=== PATIENT | male | born 1955 | race Caucasian/White ===

== ENCOUNTER → 2018-04-11 | Outpatient (CLI) | payer OTHER ==
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
== END | disposition home or self-care (01) ==
LOC: HKI 14:54
PROVIDERS: ATTEND Orthopaedic Surgery Adult Reconstructive Orthopaedic Surgery
DX: M17.11 Unilateral primary osteoarthritis, right knee (principal)
CPT/HCPCS: G0463

== ENCOUNTER → 2018-04-22 | Outpatient (CLI) | payer OTHER ==
--- NOTE | 2018-04-22 17:37 | CONS ---
Consult Date/Type/Reason Admit Date/Time Initial Consult Date Date/Time of Note DATE: 04/22/18 TIME: 17:32 Subjective This is a 60-year-old male who returns clinic today for right steroid knee injection. States his symptoms are unchanged. His pain is very severe but he is not ready for surgery at this time. Objective Exam General: Awake, alert, in no acute distress, pleasant and cooperative Heart: regular rhythm Lungs: breathing comfortably, no tachypnea or dyspnea MUSCULOSKELETAL: Right lower extremity: Skin intact Sensation intact to light touch in a sural, saphenous, deep peroneal, superficial peroneal, medial and lateral plantar nerve distribution. Motor is intact, patient able to dorsiflex and plantarflex ankle and extend and flex great toe. Dorsalis Pedis pulse +2, Brisk capillary refill. Compartments are soft. Calves non-tender to palpation bilaterally. Results/Medications Imaging The patient received a standard set of films today that were personally r eviewed. Imaging included a standing bilateral knee AP, PA flexion, merchant views and a dedicated lateral of the affected knee: There is varus alignment of the knee. There is complete loss of joint space medial compartment(s) significant loss in the lateral and patellofemoral. There is abundant osteophyte formation. There is subchondral sclerosis. There are subchondral cysts. Degenerative changes are most severe in the medial compartment(s) Assessment/Plan Hospital Course (Demo Recall) 60-year-old male with end-stage osteoarthritis of the right knee. Presents today for planned right knee steroid injection. If this injection provides relief for at least 3 months repeat injection would be reasonable. If it fails to provide relief surgery would be the next option. Plan: Right knee steroid injection Follow-up 8 weeks Assessment/Plan (Daily) Right knee steroid injection procedure: Risks and benefits of steroid injection reviewed with patient. The risks include infection, failure, pain, swelling, nerve/tendon/ligament damage. The patient verbalized understanding and verbal consent was obtained prior to procedure. The right knee was prepped in a sterile fashion with alcohol and betadine the site of injection was confirmed. Anterior medial approach was used. The skin and capsule was anesthetized with 3mL 1% lidocaine. The right knee was injected with 2mL 1% lidocaine, 2mL 0.25% bupivacaine, 40mg Depo-Medrol. Injection flowed freely. Good hemostasis was achieved and no complications noted. The patient tolerated the procedure well. Limit activity and ice for 24-48 hours JOHNYN PITTMAN MD Apr 22, 2018 17:36
--- NOTE | 2018-04-23 16:42 | RADRPT ---
PROCEDURE: XR Knees. CLINICAL INDICATION: Preoperative. Bilateral knee pain. TECHNIQUE: Total of eight views. Weightbearing frontal, oblique, and lateral views of the both kne es. Patellar views of both knees. COMPARISON: No prior study is available for comparison. FINDINGS: On the right side, there are degenerative changes with osteophytes arising from all 3 joint compartme nt margins. There is medial joint compartment narrowing, subarticular sclerosis, and deformity. There is a right knee joint effusion. On the left side, there are degenerative changes with osteophytes arising from all 3 joint compartmen t margins. There is mild medial joint compartment narrowing. There is no deformity. There is no left knee joint effusion. There is no lytic or blastic lesion on either side. There is no radiopaque foreign body. IMPRESSION: 1. Severe degenerative changes of the right knee. 2. Moderate degenerative changes of the left knee. 3. Right knee joint effusion. 4. Otherwise unremarkable study. RPTAT: QQ .Poncho Sher MD, MD Date Time Electronically viewed and signed by .Poncho Sher MD, on 04/23/2018 16:42 .R/
--- NOTE | 2018-04-23 16:44 | RADRPT ---
PROCEDURE: Limited x-ray of both lower extremities. CLINICAL INDICATION: Bilateral leg pain. TECHNIQUE: Single frontal view of both lower extremities was obtained from the hips to the ankles. COMPARISON: None. FINDINGS: The right femur measures 57 cm. The left femur measures 58 cm. The right tibia measures 44 cm. The left tibia measures 44.5 cm. There is an old healed fracture of the midshaft of the right femur. There are severe degenerative changes of the right knee joint and moderate degenerative changes of th e left knee joint. IMPRESSION: 1. Leg length as described above. 2. Old healed fracture of the midshaft of the right femur. 3. Severe degenerative changes of the right knee joint and moderate degenerative changes of the left knee joint. RPTAT: QQ .Poncho Sher MD, Date Time Electronically viewed and signed by .Poncho Sher MD, on 04/23/2018 16:44 .R/
== END | disposition home or self-care (01) ==
LOC: HKI 14:21
PROVIDERS: ATTEND Orthopaedic Surgery Adult Reconstructive Orthopaedic Surgery
DX: M17.11 Unilateral primary osteoarthritis, right knee (principal)
CPT/HCPCS: 20610; 73564; 77073; G0463

== ENCOUNTER → 2018-06-17 | Outpatient (CLI) | payer OTHER ==
--- NOTE | 2018-06-17 13:13 | CONS ---
Consult Date/Type/Reason Admit Date/Time Initial Consult Date Date/Time of Note DATE: 06/17/18 TIME: 13:10 Subjective 62-year-old male follows up today for right knee Orthovisc injection. He previously had a steroid injection by myself back in March. This only provided 1 week of relief. He is not ready for surgery from a logistical standpoint. He is trying to take care of his mother at this time. Therefore a hyaluronic acid injection was offered to try alternative conservative management. Denies any changes in symptoms except for continued pain and difficulty ambulating. He continues to wear a knee sleeve/brace. Objective Vitals Weight: 207 pounds Height: 5 foot 6 inches Temperature: 90.4 Heart Rate: 79 Blood Pressure: 128/76 Respiratory Rate: 12 Exam General: Awake, alert, in no acute distress, pleasant and cooperative Heart: regular rhythm Lungs: breathing comfortably, no tachypnea or dyspnea MUSCULOSKELETAL: Right lower extremity: Skin intact. Severe varus deformity. Tenderness to palpation along the medial and lateral joint lines. Sensation intact to light touch in a sural, saphenous, deep peroneal, superficial peroneal, medial and lateral plantar nerve distribution. Motor is intact, patient able to dorsiflex and plantarflex ankle and extend and flex great toe. Dorsalis Pedis pulse +2, Brisk capillary refill. Compartments are soft. Calves non-tender to palpation bilaterally. Assessment/Plan Hospital Course (Demo Recall) 62-year-old male with end-stage arthritis with varus deformity. Patient failed steroid injections previously. Patient is not ready for surgery secondary to social constraints therefore hyaluronic acid injection was offered. Plan: right knee Orthovisc injection Ice Low impact activity Follow-up in 1 week for second injection Assessment/Plan (Daily) Right knee viscosupplementation injection procedure: Risks and benefits of viscosupplementation injection reviewed with patient. The risks include infection, failure, pain, swelling, nerve/tendon/ligament damage. The patient verbalized understanding and verbal consent was obtained prior to procedure. The right knee was prepped in a sterile fashion with alcohol and betadine the site of injection was confirmed. Lateral approach was used. The skin and capsule was anesthetized with 3mL 1% lidocaine. The right knee was injected with Orthovisc. Injection flowed freely. Good hemostasis was achieved and no complications noted. The patient tolerated the procedure well. Limit activity and ice for 24-48 hours JOHNNY PITTMAN MD Jun 17, 2018 13:13
== END | disposition home or self-care (01) ==
LOC: HKI 11:06
PROVIDERS: ATTEND Orthopaedic Surgery Adult Reconstructive Orthopaedic Surgery
DX: M13.861 Other specified arthritis, right knee (principal); M21.10 Varus deformity, not elsewhere classified, unspecified site
CPT/HCPCS: 20610; G0463; J7324

== ENCOUNTER → 2018-06-24 | Outpatient (CLI) | payer OTHER ==
--- NOTE | 2018-06-24 16:42 | CONS ---
Consult Date/Type/Reason Admit Date/Time Initial Consult Date Date/Time of Note DATE: 06/24/18 TIME: 16:40 Subjective 62-year-old male follows up today for second Orthovisc injection to right knee. States he is already feeling relief. Objective Vitals Weight: 207 pounds Height: 5 foot 6 inches Heart Rate: 69 Blood Pressure: 189/95 Exam No no general: Awake, alert, in no acute distress, pleasant and cooperative Heart: regular rhythm Lungs: breathing comfortably, no tachypnea or dyspnea MUSCULOSKELETAL: Right lower extremity: Skin intact. No erythema Sensation intact to light touch in a sural, saphenous, deep peroneal, superficial peroneal, medial and lateral plantar nerve distribution. Motor is intact, patient able to dorsiflex and plantarflex ankle and extend and flex great toe. Dorsalis Pedis pulse +2, Brisk capillary refill. Compartments are so ft. Calves non-tender to palpation bilaterally. Assessment/Plan Hospital Course (Demo Recall) 62-year-old male with end-stage osteoarthritis and instability the right knee presents for second Orthovisc injection. First Orthovisc injection did provide some relief already. Plan: Right knee Orthovisc injection today Follow-up 1 week for third and final right knee Orthovisc injection Assessment/Plan (Daily) Right knee viscosupplementation injection procedure: Risks and benefits of viscosupplementation injection reviewed with patient. The risks include infection, failure, pain, swelling, nerve/tendon/ligament damage. The patient verbalized understanding and verbal consent was obtained prior to procedure. The right knee was prepped in a sterile fashion with alcohol and betadine the site of injection was confirmed. Lateral approach was used. The skin and capsule was anesthetized with 3mL 1% lidocaine. The right knee was injected with Orthovisc. Injection flowed freely. Good hemostasis was achieved and no complications noted. The patient tolerated the procedure well. Limit activity and ice for 24-48 hours JOHNNY PITTMAN MD Jun 24, 2018 16:42
== END | disposition home or self-care (01) ==
LOC: HKI 15:24
PROVIDERS: ATTEND Orthopaedic Surgery Adult Reconstructive Orthopaedic Surgery
DX: M17.11 Unilateral primary osteoarthritis, right knee (principal)
CPT/HCPCS: 20610; G0463; J7324

== ENCOUNTER → 2018-07-01 | Outpatient (CLI) | payer OTHER ==
--- NOTE | 2018-07-01 15:16 | CONS ---
Consult Date/Type/Reason Admit Date/Time Initial Consult Date Date/Time of Note DATE: 07/01/18 TIME: 15:12 Subjective 62-year-old male returns today for third Orthovisc injection to right knee. States he has had some relief. Continues to be in significant pain. He currently is not ready for surgery secondary to employment issues as well as family responsibilities. He is interested in discussing about a brace again. Objective Exam General: Alert, oriented x3. No Acute Distress. Heart: Regular rate and rhythm. Lungs: No respiratory distress. No accessory muscle use. Musculoskeletal: Right Knee This is a well developed male who is alert, oriented times three and in no apparent distress. Skin is intact over the right knee as well as the lower extremity with no abrasions, lacerations, or ulcerations. Observation of the patient's gait reveals an antalgic gait with large Varus thrust. Frontal plane alignment is varus. There is pain on palpation of medial joint line. The patient demonstrates grinding anteriorly with ROM. Range of motion: 0 extension to approximately 130 degrees of flexion. There is pseudolaxity with valgus stress at 0 and 30 degrees. MCL remains intact. Collateral ligament testing reveals no instability with varus stress at 0 and 30 degrees of flexion. Negative Filemon's and negative posterior drawer. Neurovascularly intact with 5/5 EHL/tibialis anterior/gastroc. Sensation intact to light touch in a sural, saphenous, deep peroneal, superficial peroneal, medial and lateral plantar nerve distribution. Palpable, symmetric dorsalis pedis and posterior tibial pulses in both lower extremities. Hip examination normal. Results/Medications Imaging The patient received a standard set of films today that were personally reviewed. Imaging included a standing bilateral knee AP, PA flexion, merchant views and a dedicated lateral of the affected knee: There is severe varus alignment of the knee. There is complete loss of joint space in the medial compartment and moderate loss of joint space in the lateral and patellofemoral compartment(s). There is osteophyte formation. There is subchondral sclerosis. There are subchondral cysts. Degenerative changes are most severe in the medial compartment(s) Assessment/Plan Hospital Course (Demo Recall) 62-year-old male being treated for right knee osteoarthritis with severe varus deformity and laxity secondary to bone loss and deformity. He currently does not believe he is ready for surgery from social history perspective. He may be moving shortly to take care of his mom who is ill. He is also currently looking for employment. In the meantime he like to continue with injection therapy as well as try the medial protective officer brace which I believe is indicated in his case given the severe varus deformity and laxity/instability on examination. Plan: Third Orthovisc injection right knee Submit authorization for right medial protective officer brace Follow-up of weeks Assessment/Plan (Daily) Right knee viscosupplementation injection procedure: Risks and benefits of viscosupplementation injection reviewed with patient. The risks include infection, failure, pain, swelling, nerve/tendon/ligament damage. The patient verbalized understanding and verbal consent was obtained prior to procedure. The right knee was prepped in a sterile fashion with alcohol and betadine the site of injection was confirmed. Lateral approach was used. The skin and capsule was anesthetized with 3mL 1% lidocaine. The right knee was injected with Orthovisc. Injection flowed freely. Good hemostasis was achieved and no complications noted. The patient tolerated the procedure well. Limit activity and ice for 24-48 hours JOHNNY PITTMAN MD July 01, 2018 15:16
== END | disposition home or self-care (01) ==
LOC: HKI 13:26
PROVIDERS: ATTEND Orthopaedic Surgery Adult Reconstructive Orthopaedic Surgery
DX: M17.11 Unilateral primary osteoarthritis, right knee (principal)
CPT/HCPCS: 20610; G0463; J7324